=== PATIENT | female | born 1980 | race African-American/Black ===

== ENCOUNTER 2017-08-04 05:34 | Inpatient (IN) ==
[2017-08-01 11:43] LABS: Basophils # 0.1 10*3/uL (0.0-0.2); Basophils % 0.9 % (0.0-0.8); Eosinophils # 0.2 10*3/uL (0.0-0.87); Eosinophils % 3.1 % (0.00-10.9); Hematocrit 32.5 VOL% (35.7-47.0); Hemoglobin 10.5 GM/DL (12.0-16.0); Immature Granulocytes % 0.1 %; Immature Granulocytes Absolute 0.01 #; Lymphocytes # 1.9 10*3/uL (1.4-4.0); Lymphocytes % 27.7 % (21.3-54.2); Mean Corpuscular HGB Conc 32.3 GM/DL (32-36); Mean Corpuscular Hemoglobin 30 PG (27-34); Mean Corpuscular Volume 93.4 FL (87-102); Mean Platelet Volume 9.7 FL (9.6-12.0); Monocytes # 0.8 10*3/uL (0.11-0.8); Neutrophils % 57.2 % (38.7-73.9); Platelet Count 395 T/CUMM (130-400); Red Blood Count 3.48 MC/CUMM (3.8-5.5); Red Cell Distribution Width 12.9 % (9.3-17.3)
[2017-08-01 11:49] LABS: PT Patient Result 10.3 SECS
[2017-08-01 11:51] LABS: Apearance,Urine CLOUDY (Clear); Bilirubin,Urine Negative (Negative); Blood, Urine Small mg/dL (Negative); Glucose,Urine (UA) 50 mg/dL (Negative); Ketones,Urine Negative (Negative); Mucus,Urine Occasional /LPF (Occasional); Nitrite,Urine Negative (Negative); Protein,Urine 30 MG/DL; RBC,Urine 1 /HPF (0-4); Squamous Epithelial Cell,Urine Occasional /HPF (0-10); Urine Color Yellow (Yellow); Urine Specific Gravity 1.016 (1.001-1.035); Urine Urobilinogen < 2.0 EU/DL (0.2-1.0); WBC,Urine 16 /HPF (0-6)
[2017-08-01 12:08] LABS: % Iron Saturation 12.7 % (18-50); Alanine Aminotransferase 38 U/L (13-56); Albumin 3.8 G/DL (3.4-5.0); Alkaline Phosphatase 98 U/L (45-117); Aspartate Amino Transferase 32 U/L (0-37); Bilirubin,Total < 0.39 MG/DL (0.2-1.0); Blood Urea Nitrogen 30 MG/DL (7-18); Calcium 9.3 MG/DL (8.5-10.1); Cholesterol 214 MG/DL (50-200); Free T4 (Free Thyroxine) 1.06 NG/DL (0.76-1.46); Glucose 97 MG/DL (74-106); HDL Cholesterol 49 MG/DL (40-60); Iron 43 UG/DL (50-170); Iron Binding Capacity 338 UG/DL (250-450); Osmolality,Calculated 284.4 MOS/KG (273-304); Potassium 3.6 MMOL/L (3.5-5.1); Risk Ratio 4.37; Sodium 140 MMOL/L (136-145); Total Protein 7.5 G/DL (6.4-8.3); Triglycerides 81 MG/DL (2-150); VLDL CHOLESTEROL 16.2 MG/DL
[2017-08-01 12:13] LABS: Folate 9.5 NG/ML (5.4-24.0)
[2017-08-04] MEDS ORDERED: HEPARIN 5,000 UNIT/1 ML VIAL SUBCUT ONE (06:00)
[2017-08-04] MEDS ORDERED: CLINDAMYCIN INJ 900 MG in PREMIX 1 EACH IV ONE (06:00)
[2017-08-04] MEDS ORDERED: SCOPOLAMINE 1.5 MG PATCH TRANSDERM ONE ×2 (06:00→06:10)
[2017-08-04] MEDS ORDERED: ACETAMINOPHEN INJ 1,000 MG in PREMIX 1 EACH IV ONE (06:00)
[2017-08-04] MEDS ORDERED: HYOSCYAMINE 0.125 MG TABLET SL ONE (06:00)
[2017-08-04] MEDS ORDERED: PANTOPRAZOLE 40 MG VIAL IV ONE ×2 (06:00→06:10)
[2017-08-04] MEDS ORDERED: HYOSCYAMINE 0.125 MG TABLET ONE (06:10)
[2017-08-04] MEDS ORDERED: HEPARIN 5,000 UNIT/1 ML VIAL ONE (06:10)
[2017-08-04] MEDS ORDERED: CLINDAMYCIN INJ 50 ML IV ONE (06:11)
[2017-08-04] MEDS ORDERED: ACETAMINOPHEN 1,000 MG/100 ML VIAL IV ONE ×2 (06:11→10:13)
[2017-08-04] MEDS ORDERED: BUPIVACAINE 0.25% 50 ML VIAL ONE (06:19)
[2017-08-04] MEDS ORDERED: BUPIVACAINE LIPOSOMAL 20 ML/266 MG VIAL ONE (06:19)
[2017-08-04] MEDS ORDERED: LIDOCAINE 1%/EPI INJ 20 ML VIAL ONE (06:19)
[2017-08-04] MEDS ORDERED: TISSUE ADHESIVE 1 EACH APPLICATOR TOP ONE (06:20)
[2017-08-04] MEDS: LACTATED RINGERS 1,000 ML IV SCH ×4 (06:35→19:04)
[2017-08-04] MEDS ORDERED: PROPOFOL 200 MG/20 ML VIAL IV ONE (10:11)
[2017-08-04] MEDS ORDERED: ONDANSETRON 4 MG/2 ML VIAL ONE ×2 (10:12→10:17)
[2017-08-04] MEDS ORDERED: DESFLURANE 1 UNIT/15 MINUTE INH ONE (10:12)
[2017-08-04] MEDS ORDERED: fentaNYL 100 MCG/2 ML VIAL ONE (10:12)
[2017-08-04] MEDS ORDERED: MIDAZOLAM 2 MG/2 ML VIAL ONE (10:12)
[2017-08-04] MEDS ORDERED: PHENYLEPHRINE 10 MG/1 ML VIAL IV ONE (10:12)
[2017-08-04] MEDS ORDERED: DEXAMETHASONE 10 MG/1 ML VIAL ONE (10:12)
[2017-08-04] MEDS ORDERED: LACTATED RINGERS 1,000 ML IV ONE (10:13)
[2017-08-04] MEDS ORDERED: ROCURONIUM 100 MG/10 ML VIAL IV ONE (10:13)
[2017-08-04] MEDS ORDERED: GLYCOPYRROLATE 0.4 MG/2 ML VIAL ONE ×2 (10:13)
[2017-08-04] MEDS ORDERED: ONDANSETRON 4 MG/2 ML VIAL IV PRN ×2 (10:14→11:03)
[2017-08-04] MEDS: HYDROmorphone 2 MG/1 ML VIAL IV PRN ×4 (10:15→10:30)
[2017-08-04] MEDS ORDERED: HYDROmorphone 2 MG/1 ML VIAL ONE (10:17)
[2017-08-04] MEDS ORDERED: hydrALAZINE 20 MG/1 ML VIAL IV PRN (11:03)
[2017-08-04] MEDS: CLINDAMYCIN INJ 600 MG in PREMIX 1 EACH IV SCH ×2 (11:34→19:04)
[2017-08-04] MEDS: SIMETHICONE CHEW 80 MG TABLET PO SCH ×3 (13:44→20:51)
[2017-08-04] MEDS: MORPHINE 2 MG/1 ML SYRINGE IV PRN ×2 (13:45→20:52)
[2017-08-04] MEDS: HYDROcod/ACETAMIN 7.5-325 MG/15 ML UDCUP PO PRN (17:18)
[2017-08-05] MEDS: MORPHINE 2 MG/1 ML SYRINGE IV PRN (00:38)
[2017-08-05] MEDS: LACTATED RINGERS 1,000 ML IV SCH ×2 (00:41→09:00)
[2017-08-05] MEDS: CLINDAMYCIN INJ 600 MG in PREMIX 1 EACH IV SCH (02:31)
[2017-08-05 05:23] LABS: Basophils % 0.1 % (0.0-0.8); Hematocrit 29.7 VOL% (35.7-47.0); Hemoglobin 10.2 GM/DL (12.0-16.0); Immature Granulocytes % 0.5 %; Immature Granulocytes Absolute 0.07 #; Lymphocytes # 1.4 10*3/uL (1.4-4.0); Lymphocytes % 10.5 % (21.3-54.2); Mean Corpuscular HGB Conc 34.3 GM/DL (32-36); Mean Corpuscular Hemoglobin 31 PG (27-34); Mean Corpuscular Volume 89.2 FL (87-102); Monocytes # 1.3 10*3/uL (0.11-0.8); Monocytes % 9.3 % (1.7-12.7); Neutrophils # 10.8 10*3/uL (1.4-7.4); Neutrophils % 79.6 % (38.7-73.9); Platelet Count 373 T/CUMM (130-400); Red Blood Count 3.33 MC/CUMM (3.8-5.5); Red Cell Distribution Width 12.8 % (9.3-17.3); White Blood Count 13.5 T/CUMM (4-12)
[2017-08-05 05:55] LABS: Calcium 8.9 MG/DL (8.5-10.1); Osmolality,Calculated 275.8 MOS/KG (273-304); Potassium 4.1 MMOL/L (3.5-5.1)
[2017-08-05] MEDS: HYDROcod/ACETAMIN 7.5-325 MG/15 ML UDCUP PO PRN ×2 (06:03→10:40)
[2017-08-05] MEDS ORDERED: PANTOPRAZOLE 40 MG VIAL IV SCH (09:00)
[2017-08-05] MEDS: SIMETHICONE CHEW 80 MG TABLET PO SCH (09:00)
[2017-08-05] MEDS ORDERED: SIMETHICONE CHEW 80 MG TABLET PO SCH (10:03)
[2017-08-05 11:54] VITALS: BP 116/55
[2017-08-06] MEDS ORDERED: ENOXAPARIN 40 MG/0.4 ML SYRINGE SUBCUT SCH (09:00)
== END 2017-08-05 15:08 | disposition home or self-care (01) | DRG 621 ==
LOC: N.SDSINP 05:34 → N.3E 11:02
PROVIDERS: ADMIT Surgery; ATTEND Surgery